=== PATIENT | male | born 1985 | race Caucasian/White ===

== ENCOUNTER → 2021-12-17 08:45 | Outpatient (REF) | payer OTHER, SELFPAY | LOC: ANHLAB 08:45 | PROVIDERS: Visit Provider Nurse Practitioner | DX: D49.2 Neoplasm of unspecified behavior of bone, soft tissue, and skin (principal); D22.39 Melanocytic nevi of other parts of face | CPT/HCPCS: 88305 ==

== ENCOUNTER → 2021-12-24 09:06 | Outpatient (REF) | payer OTHER, SELFPAY | LOC: ANHLAB 09:06 | PROVIDERS: Visit Provider Nurse Practitioner | DX: D22.4 Melanocytic nevi of scalp and neck (principal) | CPT/HCPCS: 88305; 88342 ==